=== PATIENT | male | born 1995 | race Caucasian/White ===

== ENCOUNTER 2019-01-16 04:19 | Emergency (ER) | payer MEDICAID ==
[2019-01-16] MEDS ORDERED: Bacitracin Oint 1 GM U/D Packet TOP ONE (04:22)
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
[2019-01-16] MEDS ORDERED: Diphtheria,Pertussis(Acell),Tetanus Vaccine 0.5 ML SDV IM ONE (04:48)
--- NOTE | 2019-01-16 04:57 | CRLCT ---
INDICATION: Head trauma TECHNIQUE: CT head without contrast. COMPARISON: None. FINDINGS: CSF spaces: Within normal limits for age. Brain parenchyma: The martino-white differentiation is normal. No sign of mass, hemorrhage, or midline shift. Skull base and calvarium: Orbital emphysema on the left with deformity of the left orbital floor partially included consistent a blowout type fracture. Associated hematoma within the left maxillary sinus as well as mucosal thickening within the ethmoid sinuses. No definite globe rupture. Left periorbital scalp hematoma. IMPRESSION: 1. Blowout type fracture left orbit with associated left orbital emphysema and hematoma within the left maxillary sinus. Fracture plane is only partially included on the examination. 2. No intracranial bleed or mass effect. Please note that all CT scans at this facility use dose modulation, iterative reconstruction, and/or weight-based dosing when appropriate to reduce radiation dose to as low as reasonably achievable. Dictated by Dwayne Fang MD @ Jan 16 2019 4:52AM Signed by Dr. Dwayne Fang @ Jan 16 2019 4:55AM
[2019-01-16] MEDS ORDERED: Acetaminophen 325 MG Tab PO ONE (05:00)
--- NOTE | 2019-01-16 06:34 | CRLCT ---
INDICATION: Facial injury TECHNIQUE: CT maxillofacial without contrast. COMPARISON: None FINDINGS: Facial bones: Blow-out fracture of the left orbital floor is depressed by approximately 5 mm. Nondisplaced fractures in the medial wall of the left orbit. Multiple nasal bone fractures are present including a mildly displaced fracture at the nasoethmoidal junction. Orbits and globes: Small left retrobulbar hematoma is present. There is moderate left eye proptosis. Left periorbital superficial soft tissue swelling is also present. Right orbit is normal. Sinuses: Traumatic fluid is in the left maxillary sinus. Soft tissues: Left periorbital soft tissue swelling. IMPRESSION: Multiple facial fractures including a blowout fracture of the left orbital floor and displaced fracture at the left nasoethmoidal junction. Small left orbital retrobulbar hemorrhage is present with moderate proptosis. Dictated by Geovani Houston MD @ 01/16/2019 6:31:36 AM Please note that all CT scans at this facility use dose modulation, iterative reconstruction, and/or weight-based dosing when appropriate to reduce radiation dose to as low as reasonably achievable. Dictated by: Geovani Houston MD @ 01/16/2019 06:31:42 (Electronically Signed)
[2019-01-16] MEDS ORDERED: HYDROmorphone 0.5 MG/0.5 ML Syringe IM ONE (07:17)
[2019-01-16] MEDS ORDERED: Sodium Chloride 0.9% 10 ML Syringe FLUSH PRN (07:18)
[2019-01-16] MEDS ORDERED: cefTRIAXone 1 GM in Sodium Chloride 0.9% 50 ML IV ONE (07:21)
[2019-01-16] MEDS ORDERED: Ketamine 500 MG/5 ML MDV IV ONE ×2 (07:33→08:00)
[2019-01-16] MEDS ORDERED: HYDROmorphone 1 MG/ML Syringe IVPUSH ONE (07:34)
[2019-01-16] MEDS ORDERED: Ondansetron 4 MG/2 ML SDV IVPUSH ONE (07:52)
[2019-01-16 08:12] VITALS: BP 120/58
== END 2019-01-16 08:30 ==
LOC: JP.ED 04:19
DX: S02.32XA Fracture of orbital floor, left side, initial encounter for closed fracture (principal); S02.19XA Other fracture of base of skull, initial encounter for closed fracture; S01.81XA Laceration without foreign body of other part of head, initial encounter; H05.20 Unspecified exophthalmos; Z23 Encounter for immunization; F10.129 Alcohol abuse with intoxication, unspecified; Y90.5 Blood alcohol level of 100-119 mg/100 ml; Z79.899 Other long term (current) drug therapy; Y04.0XXA Assault by unarmed brawl or fight, initial encounter
CPT/HCPCS: 12011; 12052; 36415; 70450; 70486; 80048; 85025; 90471; 90715; 96365; 96375; 99284; A9270; G0480; J0696; J1170; J2001; J2405; J7050

== ENCOUNTER 2019-07-12 04:39 | Emergency (ER) | payer SELFPAY ==
[2019-07-12 04:55] VITALS: BP 111/72; PULSE 107
[2019-07-12] MEDS ORDERED: Bacitracin Oint 1 GM U/D Packet TOP ONE (05:06)
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
== END 2019-07-12 06:03 | disposition home or self-care (01) ==
LOC: JP.ED 04:39
DX: S61.210A Laceration without foreign body of right index finger without damage to nail, initial encounter (principal); W26.0XXA Contact with knife, initial encounter; F17.210 Nicotine dependence, cigarettes, uncomplicated
CPT/HCPCS: 12002; 99282; J2001

== ENCOUNTER 2020-07-22 01:40 | Emergency (ER) | payer SELFPAY ==
[2020-07-22 01:55] VITALS: BP 116/75; PULSE 108
[2020-07-22] MEDS ORDERED: Lidocaine 1% with EPINEPHrine 1:100,000 50 ML MDV SUBCUT STA (02:11)
[2020-07-22] MEDS ORDERED: Bacitracin Oint 1 GM U/D Packet TOP ONE (02:11)
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
== END 2020-07-22 02:43 | disposition home or self-care (01) ==
LOC: JP.ED 01:40
DX: S01.01XA Laceration without foreign body of scalp, initial encounter (principal); W22.8XXA Striking against or struck by other objects, initial encounter
CPT/HCPCS: 12002; 99282-25

== ENCOUNTER 2020-08-09 14:40 | Emergency (ER) | payer SELFPAY ==
[2020-08-09 14:53] VITALS: BP 130/87; PULSE 79
--- NOTE | 2020-08-09 15:16 | EDM.PDOC ---
ED HPI GENERAL MEDICAL PROBLEM - General Chief Complaint: General Stated Complaint: RIGHT SIDE OF MOUTH SWOLLEN Time Seen by Provider: 08/09/20 15:05 Source of Information: Reports: Patient, Old Records, RN History Limitations: Reports: No Limitations - History of Present Illness INITIAL COMMENTS - FREE TEXT/NARRATIVE: 25 yo male with a pHx of very bad teeth presents with increased pain and now slight swelling of the L side of his mouth and his pain has increased. No fever. Onset: Gradual Onset Date: 08/07/20 Duration: Day(s): (2+), Getting Worse Location: Reports: Face (R side) Quality: Reports: Ache Severity: Moderate Improves with: Reports: None Worsens with: Reports: Other (time) Context: Reports: Other (See HPI) Associated Symptoms: Reports: No Other Symptoms. Denies: Fever/Chills Treatments PSYCHIATRIC CLINICAL NURSE SPECIALIST: Reports: Other (see below) (none) - Related Data Allergies Allergy/AdvReac Type Severity Reaction Status Date / Time No Known Allergies Allergy Verified 08/09/20 14:48 Home Meds: Home Meds Acetaminophen/HYDROcodone [[place] 325-5 MG] 1 - 2 tab PO Q6H PRN #10 tab 08/09/20 [Rx] Amoxicillin [Amoxil] 875 mg PO Q12HR #20 tab 08/09/20 [Rx] Past Medical History - Past Health History Medical/Surgical History: Denies Medical/Surgical History HEENT History: Reports: None Musculoskeletal History: Reports: Fracture Neurological History: Reports: Concussion Psychiatric History: Reports: ADD - Infectious Disease History Infectious Disease History: Reports: Chicken Pox - Past Surgical History Head Surgeries/Procedures: Reports: None HEENT Surgical History: Reports: Other (See Below) Other HEENT Surgeries/Procedures: facial surgery Neurological Surgical History: Reports: None Musculoskeletal Surgical History: Reports: None Dermatological Surgical History: Reports: None Social & Family History - Tobacco Use Used Tobacco, but Quit: No Second Hand Smoke Exposure: No - Caffeine Use Caffeine Use: Reports: Coffee, Energy Drinks - Recreational Drug Use Recreational Drug Use: No ED ROS GENERAL - Review of Systems Review Of Systems: See Below Constitutional: Reports: No Symptoms HEENT: Reports: Dental Pain Respiratory: Reports: No Symptoms Skin: Reports: No Symptoms Neurological: Reports: No Symptoms ED EXAM, GENERAL - Physical Exam Exam: See Below Exam Limited By: No Limitations General Appearance: Alert, WD/WN, No Apparent Distress Eye Exam: Bilateral Eye: Normal Inspection Ears: Normal External Exam, Normal Canal, Hearing Grossly Normal, Normal TMs Ear Exam: Bilateral Ear: Auricle Normal, Canal Normal, TM normal Nose: Normal Inspection, No Blood Throat/Mouth: Normal Lips, Normal Oropharynx, Normal Voice, No Airway Compromise, Other (Very poor dentitian, painful R posterior molar is decay to a level below the gumline.). No: Normal Teeth Respiratory/Chest: No Respiratory Distress Cardiovascular: Regular Rate, Rhythm Neurological: Alert, Oriented, CN II-XII Intact, Normal Cognition, No Motor/Sensory Deficits Psychiatric: Normal Affect, Normal Mood Skin Exam: Warm, Dry Course - Vital Signs Last Recorded V/S: Last Vital Signs Temp 37.0 C 08/09/20 14:54 Pulse 79 08/09/20 14:54 Resp 16 08/09/20 14:54 BP 130/87 08/09/20 14:54 Pulse Ox 99 08/09/20 14:54 Departure - Departure Time of Disposition: 15:20 Disposition: Home, Self-Care 01 Condition: Fair Clinical Impression: Dental infection - Discharge Information *PRESCRIPTION DRUG MONITORING PROGRAM REVIEWED*: No *COPY OF PRESCRIPTION DRUG MONITORING REPORT IN PATIENT PIHL: No Prescriptions: Amoxicillin [Amoxil] 875 mg PO Q12HR #20 tab Acetaminophen/HYDROcodone [[place] 325-5 MG] 1 - 2 tab PO Q6H PRN #10 tab PRN Reason: Pain Referrals: PCP,None [Primary Care Provider] - Additional Instructions: Use Amoxicillin every 12 hrs. Take ibuprofen 600 mg every 6 hrs with food for pain relief. Add acetaminophen OR [place] for added relief. See your dentist EVON. See your doctor if more pain meds are needed. Sepsis Event Note (ED) - Evaluation Sepsis Screening Result: No Definite Risk - Focused Exam Vital Signs: Vital Signs Temp Pulse Resp BP Pulse Ox 08/09/20 14:54 37.0 C 79 16 130/87 99 08/09/20 14:51 37.0 C 79 16 130/87 99
== END 2020-08-09 15:37 | disposition home or self-care (01) ==
LOC: JP.ED 14:40
DX: K04.7 Periapical abscess without sinus (principal); K02.9 Dental caries, unspecified
CPT/HCPCS: 99283

== ENCOUNTER 2022-06-19 17:01 | Emergency (ER) | payer SELFPAY ==
[2022-06-19] MEDS ORDERED: Lidocaine 1% PF 2 ML SDV ONE (18:00)
[2022-06-19] MEDS ORDERED: cefTRIAXone 500 MG Vial ONE (18:00)
== END 2022-06-19 18:42 | disposition home or self-care (01) ==
LOC: JP.ED 17:01
DX: N45.1 Epididymitis (principal)
CPT/HCPCS: 36415; 76870; 85025; 93976; 96372; 99284; J0696